=== PATIENT | female | born 1935 | race Caucasian/White ===

== ENCOUNTER 2018-12-10 14:11 | Observation (INO) | payer MEDICARE, BC ==
--- NOTE | 2018-12-10 14:53 | ED ---
Influenza-Like Illness - HPI Summary HPI Summary: An 83 y/o female brought in by [facility] ambulance presents to [facility] with a chief complaint of flu like symptoms since 12/09/18. The patient reports dizziness, productive cough with clear phlegm, body aches, runny nose, sinus congestion, post nasal drip, fever and chills. The patient notes that she did not take her temperature but thinks she has a fever. Temperature of 99.9 noted at triage. She denies N/V/D, CP, SOB or swelling of her legs. At triage the patient rated her pain as a 2/10 in severity. The patient's daughter reports that she recently had an upper respiratory infection, but has stayed away from her mother. - History of Current Complaint Chief Complaint: EDFluSymptoms Time Seen by Provider: 12/10/18 14:38 Hx Obtained From: Patient, EMS Onset/Duration: Sudden Onset, Lasting Hours, Still Present Severity: Mild Associated Signs & Symptoms: Fever, Cough, Nasal Congestion - Allergy/Home Medications Allergies/Adverse Reactions: Allergies Allergy/AdvReac Type Severity Reaction Status Date / Time erythromycin base Allergy Unknown Verified 12/10/18 14:40 Reaction Details omeprazole Allergy Unknown Verified 12/10/18 14:40 Reaction Details Penicillins Allergy Unknown Verified 12/10/18 14:40 Reaction Details Home Medications: Home Medications Apixaban* [Eliquis*] 2.5 mg PO BID 12/10/18 [History Confirmed 12/10/18] PMH/Surg Hx/FS Hx/Imm Hx Endocrine/Hematology History: Denies: Hx Diabetes Cardiovascular History: Reports: Hx Hypercholesterolemia, Hx Hypertension Denies: Hx Congestive Heart Failure GI History: Reports: Hx Gall Bladder Disease - Cholecystectomy previously, Hx Gastroesophageal Reflux Disease - ON MEDS, Other GI Disorders - Appendicitis Sensory History: Reports: Hx Contacts or Glasses - Reading, Hx Hearing Problem - No hearing aids Opthamlomology History: Reports: Hx Contacts or Glasses - Reading - Cancer History Cancer Type, Location and Year: Skin cancer on LLQ of abdomen and nose Hx Chemotherapy: No Hx Radiation Therapy: No - Surgical History Surgery Procedure, Year, and Place: 2010 colon resection [facility]. 1974 HYSTERECTOMY ROS. 1960s APPENDECTOMY. 2010 BILATERAL CATARACTS [facility] [place]. 2013 CHOLECYSTECTOMY. Skin CA removal Hx Anesthesia Reactions: No Infectious Disease History: No Infectious Disease History: Denies: Traveled Outside the [place] in Last 30 Days - Family History Known Family History: Negative: Hypertension, Diabetes - Social History Alcohol Use: 2x/month Alcohol Amount: 3-4 DRINKS/MONTH Substance Use Type: Reports: None Smoking Status (MU): Former Smoker Amount Used/How Often: 1 1/2 PPD 20 YRS Review of Systems Positive: Fever, Chills Positive: Other - Positive: runny nose, sinus congestion, post nasal drip Negative: Chest Pain Negative: Shortness Of Breath Negative: Vomiting, Diarrhea, Nausea Positive: Edema - legs, Other - body aches Neurological: Other - Positive: dizziness All Other Systems Reviewed And Are Negative: Yes Physical Exam - Summary Physical Exam Summary: VITAL SIGNS: Reviewed. GENERAL: Patient is a well-developed and nourished FEMALE who is lying comfortable in the stretcher. Patient is not in any acute respiratory distress. HEAD AND FACE: No signs of trauma. No ecchymosis, hematomas or skull depressions. No sinus tenderness. EYES: PERRLA, EOMI x 2, No injected conjunctiva, no nystagmus. EARS: Hearing grossly intact. Ear canals and tympanic membranes are within normal limits. MOUTH: Oral mucosa dry. NECK: Supple, trachea is midline, no adenopathy, no JVD, no carotid bruit, no c- spine tenderness, neck with full ROM. CHEST: Symmetric, no tenderness at palpation LUNGS: Decreased breath sounds bilaterally. Crackles in both places of the lungs. CVS: Regular rate and rhythm, S1 and S2 present, no murmurs or gallops appreciated. ABDOMEN: Soft, non-tender. No signs of distention. No rebound no guarding, and no masses palpated. Bowel sounds are normal. EXTREMITIES: FROM in all major joints, no edema, no cyanosis or clubbing. NEURO: Alert and oriented x 3. No acute neurological deficits. Speech is normal and follows commands. SKIN: Dry and warm Triage Information Reviewed: Yes Vital Signs On Initial Exam: Initial Vitals Temp Pulse Resp BP Pulse Ox 99.9 F 76 24 150/50 93 12/10/18 14:15 12/10/18 14:15 12/10/18 14:15 12/10/18 14:15 12/10/18 14:15 Vital Signs Reviewed: Yes Diagnostics - Vital Signs Vital Signs Temp Pulse Resp BP Pulse Ox 12/10/18 14:15 99.9 F 76 24 150/50 93 - Laboratory Result Diagrams: 12/10/18 15:13 12/10/18 15:13 Lab Statement: Any lab studies that have been ordered have been reviewed, and results considered in the medical decision making process. - Radiology CXR Radiology Interpretation Completed By: Radiologist Summary of Radiographic Findings: Atelectasis in the right midlung field. No pneumonia is identified. ED physician has reviewed this imaging report. - EKG 15:32 Cardiac Rate: NL - 85 bpm. EKG Rhythm: Sinus Rhythm EKG Comparison: No Significant Change Summary of EKG Findings: Normal sinus rhtyhm at [address] elevations similar to previous EKG done 04/28/15 Flu Symptom Course/Dx - Course Assessment/Plan: Blood work without any significant abnormality except for creatinine 1.5, glucose 124, CRP of 22.56, BNP is 605, urinalysis is negative for UTI. Influenza A and B is negative. Chest x-ray is read by radiology as negative for acute pathology. However in looking in the x-ray and he since that the patient has a left lower lobe pleural effusion and may be playing some pneumonia. Since the patient is having fevers, productive cough with yellowish and greenish sputum I believe that the patient may be developing an early pneumonia. Therefore I give the patient Rocephin and Lasix since the BNP is elevated. I discuss my physical exam, findings and test results with Dr. Johnson from the hospitalist services and he agrees to admit patient to his services. Patient is hemodynamically stable alert and oriented x 3. - Diagnoses Provider Diagnoses: Pneumonia, CHF (congestive heart failure) - Physician Notifications Discussed Care Of Patient With: Hugo Johnson Time Discussed With Above Provider: 18:14 Instructed by Provider To: Admit As Inpatient Discharge - Sign-Out/Discharge Documenting (check all that apply): Patient Departure - admit Patient Received Moderate/Deep Sedation with Procedure: No - Discharge Plan Condition: Fair Disposition: ADMITTED TO [facility] - Billing Disposition and Condition Condition: FAIR Disposition: Admitted to [facility] - Attestation Statements Document Initiated by Scribe: Yes Documenting Scribe: Mc Rodriguez Provider For Whom Scribe is Documenting (Include Credential): Augustin Jimenez MD Scribe Attestation: IMc, scribed for Augustin Jimenez MD on 12/10/18 at 2123. Scribe Documentation Reviewed: Yes Provider Attestation: The documentation as recorded by the scribe, Mc Rodriguez accurately reflects the service I personally performed and the decisions made by me, Augustin Jimenez MD Status of Scribe Document: Viewed
[2018-12-10] MEDS ORDERED: NS 0.9% 1000 ML** 1,000 ML IV.FLUID IV ONE (14:56)
[2018-12-10 15:00] LABS: Influenza A Molecular NEGATIVE (Negative); Influenza B Molecular NEGATIVE (Negative)
[2018-12-10 15:27] LABS: ABS Basophils 0 10^3/ul (0-0.2); ABS Eosinophils 0.1 10^3/ul (0-0.6); ABS Lymphocytes 0.6 10^3/ul (1.0-4.8); ABS Monocytes 0.5 10^3/ul (0-0.8); ABS Neutrophils 5.9 10^3/ul (1.5-7.7); ABS Nucleated RBC 0 10^3/ul; Eosinophil % 0.9 %; Hematocrit 40 % (35-47); Hemoglobin 13.4 g/dl (12.0-16.0); Lymphocyte % 8.6 %; Mean Corpuscular HGB Conc 34 g/dl (31-36); Mean Corpuscular Hemoglobin 30 pg (27-31); Mean Corpuscular Volume 90 fL (80-97); Mean Platelet Volume 8.2 fL (7.4-10.4); Nucleated Red Blood Cells % 0; Platelet Count 194 10^3/ul (150-450); Red Blood Count 4.43 10^6/ul (4.00-5.40); Red Cell Distribution Width 13 % (10.5-15); White Blood Count 7.1 10^3/ul (3.5-10.8)
[2018-12-10 15:50] LABS: Albumin/Globulin Ratio 1.5 (1-3); BUN/Creatinine Ratio 13.2 (8-20); C Reactive Protein 22.56 mg/L (<8.01); Calcium 9.7 mg/dL (8.6-10.3); EGFR African American 39.6 (>60); EGFR Non-African American 32.8 (>60); Globulin 2.6 g/dL (2-4); Potassium 4.2 mmol/L (3.5-5.0); Total Bilirubin 0.7 mg/dL (0.2-1.0); Total Protein 6.6 g/dL (6.4-8.9)
[2018-12-10 15:51] LABS: Troponin I 0.01 ng/mL (<0.04)
[2018-12-10 15:55] LABS: CKMB ng/mL 0.7 ng/mL (0.6-6.3)
[2018-12-10] MEDS ORDERED: cefTRIAXone(*) 1 GM in NS 0.9% 50 ML* 50 ML IVPB ONE (16:13)
[2018-12-10] MEDS ORDERED: Furosemide IV* 10 MG/ML 2 ML VIAL (20 MG) IV ONE (16:13)
[2018-12-10] MEDS ORDERED: Albuterol/Ipratropium NEB.SOL* Albuterol 2.5 MG/Ipratropium 0.5 MG 3 ML INH PRN (17:04)
[2018-12-10 17:22] LABS: Urine Appearance Clear; Urine Bilirubin Negative (Negative); Urine Blood Negative (Negative); Urine Color Straw; Urine Glucose Negative (Negative); Urine Ketones Negative (Negative); Urine Nitrite Negative (Negative); Urine Protein Negative (Negative); Urine Specific Gravity 1.006 (1.010-1.030); Urine Urobilinogen Negative (Negative)
[2018-12-10] MEDS ORDERED: Albuterol/Ipratropium NEB.SOL* Albuterol 2.5 MG/Ipratropium 0.5 MG 3 ML INH SCH ×2 (18:00→19:00)
--- NOTE | 2018-12-10 19:07 | HP ---
HISTORY AND PHYSICAL: DATE OF ADMISSION: 12/10/18 ADMITTING PROVIDER: Hugo Johnson MD PRIMARY CARE PHYSICIAN: Dr. Murphy. OUTPATIENT UM NURSE: Dr. Washington. CHIEF COMPLAINT: Fevers, chills, shortness of breath and background of chronic dyspnea on exertion, headache. HISTORY OF PRESENT ILLNESS: Concepcion Avelar is an 83-year-old female with past medical history of hypertension and hyperlipidemia, although on no meds for neither and on Eliquis 2.5 b.i.d. for unclear reason (she states because half of her kidneys are not working); suspected possible COPD, 30-pack years(quit in 1979). 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 She developed flu-like symptoms over the last 24 hours with headaches, cough, congestion, severe chills, worse shortness of breath than usual and some wheezing. [place] [facility] and was found to have elevated BNP of 605 compared to her normal value back in 2013. Her CRP was 22.5. She was tachypneic, had a temperature of 99.9 and given her comorbidities of possible COPD, undiagnosed CHF and despite the negative flu swabs, she was being admitted to observation status for respiratory distress and SIRS. She was given ceftriaxone and 20mg of IV Lasix in the emergency room. She is a poor historian. She is very short of breath with exertion at baseline, cannot walk up a flight of stairs without stopping. Last echocardiogram was in 2014, which showed an EF of 60% to 65%. She was recently stopped off her atorvastatin. She says she takes an inhaler for "her heart" though her son thinks it is likely for "early COPD" that was suspected by Dr. Murphy. PAST MEDICAL HISTORY: Hypertension, hyperlipidemia, appendectomy, hysterectomy , bowel resection, skin cancer, lap jourdan, ? early COPD. CURRENT MEDICATIONS: She only attests to unknown inhaler as needed and Eliquis 2.5 mg b.i.d. ALLERGIES: To PENICILLIN, OMEPRAZOLE, ERYTHROMYCIN. FAMILY HISTORY: Mother of PE and hypertension at age 89. Father of prostate cancer and hypertension at age 89. SOCIAL HISTORY: The patient has approximately 25 to 30-pack year, quit in 1979. No drug use or alcohol use. Her medical surrogate is Judy Michael, [phone]. She does desire to be a full code. REVIEW OF SYSTEMS: A complete 14-point review of systems negative except as per HPI. PHYSICAL EXAMINATION GENERAL APPEARANCE: No acute distress. VITAL SIGNS: Temperature 99.8; pulse rate 76; respiratory rate 24; satting 92% on room air, but desaturating with talking; blood pressure 150/50. HEENT: Normocephalic, atraumatic. Pupils are equal, round, and reactive to light. Extraocular motions intact. No scleral icterus. NECK: Supple. No cervical lymphadenopathy. LUNGS: No rhonchi or rales, but expiratory wheezing diffusely. CARDIAC: Regular rate and rhythm. No murmurs, rubs, or gallops. ABDOMEN: Soft, nontender, nondistended. EXTREMITIES: Warm and well perfused. Trace pitting edema bilaterally. NEURO: Cranial nerves II through XII intact. Moving all extremities. SKIN: No lesions. No rashes. DIAGNOSTIC STUDIES/LAB DATA: White count 7.1, hemoglobin 13.4, hematocrit 40, platelets 194,000. Sodium 137, potassium 4.2, chloride 103, carbon dioxide 29, BUN 20, creatinine 1.51, glucose 124. AST 17, ALT 12. Troponin 0.01, CRP 22.5 , BNP 605. Influenza A and B negative. Chest x-ray demonstrated atelectasis in the right mid lung filed. No pneumonia is identified. EKG demonstrated normal sinus rhythm, left axis deviation. No ST changes. T- wave in V5. ASSESSMENT AND PLAN: Concepcion Avelar is an 83-year-old female with past medical history of 25 to 30-pack year and suspected early chronic obstructive pulmonary disease, uses p.r.n.(unknown) inhalers, presenting with 24 hours of flu-like symptoms. She is tachypneic here with worsening hypoxia with talking, desatting to the mid 80s while I was in the room though with poor waveform and likely somewhat artifactual. She also has elevated BNP, though no known history of congestive heart failure. Flu was negative. Daughter did have upper respiratory symptoms recently. Given her age of 83 and comorbidities, I think it is prudent to admit her to observation status, get an echocardiogram to evaluate her valves and systolic and diastolic function. Daily weights, strict I's and O's. 20mg of IV Lasix b.i.d. I am going to continue Tamiflu empirically as the flu swab may be false negative and also continue the ceftriaxone. I am going to start azithromycin for potential chronic obstructive pulmonary disease exacerbation. She is status post one dose of ceftriaxone here. She is a full code. She can eat a heart-healthy diet. Medical surrogate is Judy Michael. Continue her Eliquis and try to figure out why she is actually taking that. [id number]/CPS #: [id number] MTDD
[2018-12-10] MEDS: Acetaminophen TAB* 325 MG PO PRN (19:20)
[2018-12-10] MEDS: Oseltamivir CAP* 30 MG CAP PO SCH (21:27)
[2018-12-10] MEDS: Furosemide IV* 10 MG/ML 2 ML VIAL (20 MG) IV SCH (21:28)
[2018-12-10] MEDS: Apixaban* 2.5 MG TAB PO SCH (21:28)
[2018-12-11 02:13] LABS: Magnesium 1.9 mg/dL (1.9-2.7)
[2018-12-11] MEDS: Oseltamivir CAP* 30 MG CAP PO SCH (08:56)
[2018-12-11] MEDS: Acetaminophen TAB* 325 MG PO PRN (08:56)
[2018-12-11] MEDS: Apixaban* 2.5 MG TAB PO SCH ×2 (08:56→20:53)
[2018-12-11 08:58] LABS: ABS Basophils 0.1 10^3/ul (0-0.2); ABS Eosinophils 0.1 10^3/ul (0-0.6); ABS Lymphocytes 1.1 10^3/ul (1.0-4.8); ABS Monocytes 0.7 10^3/ul (0-0.8); ABS Neutrophils 3.4 10^3/ul (1.5-7.7); ABS Nucleated RBC 0 10^3/ul; Eosinophil % 2.7 %; Hematocrit 40 % (35-47); Hemoglobin 13.3 g/dl (12.0-16.0); Lymphocyte % 20.8 %; Mean Corpuscular HGB Conc 34 g/dl (31-36); Mean Corpuscular Hemoglobin 30 pg (27-31); Mean Corpuscular Volume 90 fL (80-97); Mean Platelet Volume 8.7 fL (7.4-10.4); Nucleated Red Blood Cells % 0.1; Platelet Count 199 10^3/ul (150-450); Red Blood Count 4.38 10^6/ul (4.00-5.40); Red Cell Distribution Width 13 % (10.5-15); White Blood Count 5.4 10^3/ul (3.5-10.8)
[2018-12-11 09:17] LABS: BUN/Creatinine Ratio 13.4 (8-20); Calcium 9.8 mg/dL (8.6-10.3); EGFR African American 37.9 (>60); EGFR Non-African American 31.3 (>60); Magnesium 1.8 mg/dL (1.9-2.7); Potassium 3.7 mmol/L (3.5-5.0)
[2018-12-11] MEDS: Furosemide IV* 10 MG/ML 2 ML VIAL (20 MG) IV SCH ×2 (09:33→20:53)
--- NOTE | 2018-12-11 10:58 | ECHO ---
Patient: ANTONY CROSS Rec#: [id number] : 1935 Date: 12/11/2018 Age: 83y Height: 168 cm / 66.1 in Weight: 77 kg / 169.7 lbs Sex: F BSA: 1.87 Room#: 433 Admit Date#: 12/10/2018 Type: Inpatient Referring: Hugo Johnson Reading: Maite Gutierres MD Wireless Technician: Sofia Rolon,DIXIECS,RDMS CC: Roberto Murphy DO Transthoracic Echocardiogram Indication: CHF, SOB BP: 121/46 HR: 44 Rhythm: NSR with PVCs Findings History: PFO, HTN, HLD Technical Comments: The study quality is fair. Left Ventricle: The left ventricular chamber size is normal. Mild concentric left ventricular hypertrophy is observed. Basal interventricular septum shows moderate thickening. Global left ventricular wall motion and contractility are within normal limits. The estimated ejection fraction is 60-65%. There is an E to A reversal in the mitral valve flow pattern suggestive of diastolic dysfunction. Left Atrium: The left atrium is slightly dilated. Right Ventricle: The right ventricular chamber size and systolic function are within normal limits. Right Atrium: The right atrial cavity size is normal. There is evidence of an atrial septal aneurysm. Aortic Valve: The aortic valve is trileaflet. The aortic valve leaflets are mildly thickened. Systolic excursion of the aortic valve is normal. There is aortic annular calcification. There is no evidence of aortic regurgitation. There is no evidence of aortic stenosis. Mitral Valve: There is mitral annular calcification. The mitral valve leaflets are mildly thickened. There is mild to moderate mitral regurgitation. There is no evidence of mitral stenosis. Tricuspid Valve: The tricuspid valve leaflets are normal. There is mild to moderate tricuspid regurgitation. There is evidence of borderline pulmonary hypertension. Pulmonic Valve: The pulmonic valve structure is not well visualized. There is no evidence of pulmonic regurgitation. Pericardium: There is no significant pericardial effusion. Aorta: The aortic root appears normal. The aortic arch is not well visualized. Pulmonary Artery: The main pulmonary artery is not well visualized. Venous: The inferior vena cava appears normal in size. There is a greater than 50% respiratory change in the inferior vena cava dimension. Summary: There are changes noted when compared to the previous study done on [facility] done 04/29/2015, MR and TR with borderline mildincrease now. Now there is borderline PHTN instead of mild-moderate then. Conclusions The left ventricular chamber size is normal. Mild concentric left ventricular hypertrophy is observed. The estimated ejection fraction is 60-65%. There is mild to moderate mitral regurgitation. There is mild to moderate tricuspid regurgitation. Measurements Name Value Normal Range RVIDd (AP) 2D 2.5 cm (0.9 - 2.6) RVDdMajor (2D) 2.6 cm (2.2 - 4.4) RAd ISD 4CH 4.7 cm (3.4 - 4.9) RA (A4C)W 3.5 cm (2.9 - 4.6) IVSd (2D) 1.5 cm (0.6 - 1) LVPWd (2D) 1.1 cm (0.6 - 1) LVIDd (2D) 4.2 cm (3.6 - 5.4) LVIDs (2D) 2.6 cm - LV FS (2D) 37 % (25 - 45) Aortic Annulus 2.1 cm (1.4 - 2.6) Ao root diameter (2D) 2.9 cm (2.1 - 3.5) Ascending Ao 2.9 cm (2.1 - 3.4) LA dimension (AP) 2D 3.3 cm (2.3 - 3.8) LAd ISD 4CH 5.6 cm (2.9 - 5.3) LA ISD 4CH W 3.9 cm (2.5 - 4.5) Name Value Normal Range LA ESV BP (A/L) index 27 ml/m2 - Name Value Normal Range MV E-wave Vmax 0.7 m/sec - MV deceleration time 84 msec - MV A-wave Vmax 1.2 m/sec - MV E:A ratio 0.6 ratio - LV septal e' Vmax 0.06 m/sec - LV lateral e' Vmax 0.08 m/sec - LV E:e' septal ratio 11 ratio - LV E:e' lateral ratio 8 ratio - Name Value Normal Range AV Vmax 1.7 m/sec - AV VTI 33 cm - AV peak gradient 12 mmHg - AV mean gradient 6 mmHg - LVOT Vmax 1.3 m/sec - LVOT VTI 23 cm - LVOT peak gradient 7 mmHg - LVOT mean gradient 4 mmHg - MAXI Vmax 0.5 m/sec - Name Value Normal Range MV Vmax 1.4 m/sec - MV VTI 33 cm - MV peak gradient 8 mmHg - MV mean gradient 2 mmHg - MV PHT 83 msec - MVA (PHT) 2.7 cm2 - Name Value Normal Range TR Vmax 2.8 m/sec - TR peak gradient 31 mmHg - RAP 3 mmHg - RVSP 34 mmHg - IVC diameter 1.4 cm - Name Value Normal Range PV Vmax 0.6 m/sec - PV peak gradient 1.4 mmHg -
[2018-12-11] MEDS ORDERED: Magnesium Sulfate 2 GM IV* 2 GM/50 ML BAG IVPB ONE (12:40)
[2018-12-11] MEDS ORDERED: cefTRIAXone(*) 1 GM in NS 0.9% 50 ML* 50 ML IVPB SCH (16:00)
--- NOTE | 2018-12-11 16:45 | PN ---
Subjective Date of Service: 12/11/18 Interval History: Resting in bed with daughter at bedside. O2 saturation monitor while talking with patient and she remained above 95% on room air. Also did not show signs of dyspnea. Reports she feels improved since last evening. Denies chest pain/pressure, palpitations, shortness of breath, nausea, vomiting , diarrhea, fever/chills, dizziness. Reports occasional cough. Per nurse patient has a "bad" cough occasionally. Objective Active Medications: Acetaminophen (Tylenol Tab*) 650 mg PO Q6H PRN PRN Reason: FEVER/HEADACHE Last Admin: 12/11/18 08:56 Dose: 650 mg Albuterol/Ipratropium (Duoneb (Albuterol 2.5 Mg/Ipratropium 0.5 Mg)) 1 neb INH Q2H PRN PRN Reason: SOB/WHEEZING Apixaban (Eliquis*) 2.5 mg PO BID [facility] Last Admin: 12/11/18 08:56 Dose: 2.5 mg Furosemide (Lasix Iv*) 20 mg IV BID [facility] Last Admin: 12/11/18 09:33 Dose: 20 mg Ceftriaxone Sodium 1 gm/ (Sodium Chloride) 50 mls @ 200 mls/hr IVPB Q24H [facility] Last Admin: 12/11/18 16:35 Dose: 200 mls/hr Vital Signs - 8 hr 12/11/18 11:41 Temperature 97.5 F Pulse Rate 41 Respiratory 20 Rate Blood Pressure 127/45 (mmHg) O2 Sat by Pulse 95 Oximetry Oxygen Devices in Use Now: None Appearance: Comfortable, NAD Eyes: No Scleral Icterus Ears/Nose/Mouth/Throat: Clear Oropharnyx, Mucous Membranes Moist Neck: NL Appearance and Movements; NL JVP Respiratory: Symmetrical Chest Expansion and Respiratory Effort, Clear to Auscultation, - - Mildly decreased airflow Cardiovascular: NL Sounds; No Murmurs; No JVD, RRR, No Edema Abdominal: NL Sounds; No Tenderness; No Distention Lymphatic: No Cervical Adenopathy Extremities: No Edema Skin: No Rash or Ulcers Neurological: Alert and Oriented x 3 Nutrition: Taking PO's Result Diagrams: 12/11/18 07:55 12/11/18 07:55 Additional Lab and Data: Laboratory Results - last 24 hr 12/10/18 12/10/18 12/11/18 14:52 15:13 07:55 WBC RBC Hgb Hct MCV MCH MCHC RDW Plt Count MPV Neut % (Auto) Lymph % (Auto) Towner % (Auto) Eos % (Auto) Baso % (Auto) Absolute Neuts (auto) Absolute Lymphs (auto) Absolute Monos (auto) Absolute Eos (auto) Absolute Basos (auto) Absolute Nucleated RBC Nucleated RBC % Sodium 137 138 Potassium 4.2 3.7 Chloride 103 101 Carbon Dioxide 29 27 Anion Gap 5 10 BUN 20 21 Creatinine 1.51 H 1.57 H Est GFR ( Amer) 39.6 37.9 Est GFR (Non-Af Amer) 32.8 31.3 BUN/Creatinine Ratio 13.2 13.4 Glucose 124 H 101 H Calcium 9.7 9.8 Magnesium 1.9 1.8 L Total Bilirubin 0.70 AST 17 ALT 12 Alkaline Phosphatase 57 Total Creatine Kinase 48 CK-MB (CK-2) 0.7 Troponin I 0.01 C-Reactive Protein 22.56 H Total Protein 6.6 Albumin 4.0 Globulin 2.6 Albumin/Globulin Ratio 1.5 Urine Color Straw Urine Appearance Clear Urine pH 7.0 Ur Specific [place] 1.006 L Urine Protein Negative Urine Ketones Negative Urine Blood Negative Urine Nitrate Negative Urine Bilirubin Negative Urine Urobilinogen Negative Ur Leukocyte Esterase Negative Urine Glucose Negative 12/11/18 07:55 WBC 5.4 RBC 4.38 Hgb 13.3 Hct 40 MCV 90 MCH 30 MCHC 34 RDW 13 Plt Count 199 MPV 8.7 Neut % (Auto) 62.2 Lymph % (Auto) 20.8 Towner % (Auto) 13.3 Eos % (Auto) 2.7 Baso % (Auto) 1.0 Absolute Neuts (auto) 3.4 Absolute Lymphs (auto) 1.1 Absolute Monos (auto) 0.7 Absolute Eos (auto) 0.1 Absolute Basos (auto) 0.1 Absolute Nucleated RBC 0 Nucleated RBC % 0.1 Sodium Potassium Chloride Carbon Dioxide Anion Gap BUN Creatinine Est GFR ( Amer) Est GFR (Non-Af Amer) BUN/Creatinine Ratio Glucose Calcium Magnesium Total Bilirubin AST ALT Alkaline Phosphatase Total Creatine Kinase CK-MB (CK-2) Troponin I C-Reactive Protein Total Protein Albumin Globulin Albumin/Globulin Ratio Urine Color Urine Appearance Urine pH Ur Specific [place] Urine Protein Urine Ketones Urine Blood Urine Nitrate Urine Bilirubin Urine Urobilinogen Ur Leukocyte Esterase Urine Glucose Microbiology and Other Data: Microbiology 12/10/18 15:28 Aerobic Blood Culture - Preliminary Blood Venous No Growth Day 1 Anaerobic Blood Culture - Preliminary No Growth Day 1 12/10/18 15:13 Aerobic Blood Culture - Preliminary Blood Venous No Growth Day 1 Anaerobic Blood Culture - Preliminary No Growth Day 1 12/10/18 14:39 Influenza Types A,B Antigen - Final Nasal Specimen received for Influenza A/B Molecular testing Assess/Plan/Problems-Billing Assessment: 83 yr old with pmh of htn, hld, smoking; who presented to ED with fever, chills , sob and was found to be dyspnic and had elevated bnp - Patient Problems (1) Diastolic dysfunction Comment: - Echo revealed mitral valve flow pattern that is suggestive of diastolic dysfunction - In addition patient has mild to mod mitral and tricuspid regurg - BNP elevated on admission. - Has received Lasix 20 mg IV BID while inpatient. LS clear today and patient not dyspnic therefore will stop Lasix after tonights dose. 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 Tomorrow? Attending: Sudhir Seo
[2018-12-12 06:00] LABS: BUN/Creatinine Ratio 17.2 (8-20); Calcium 9.9 mg/dL (8.6-10.3); EGFR African American 36.3 (>60); Magnesium 2.3 mg/dL (1.9-2.7)
[2018-12-12 08:43] VITALS: BP 134/47
[2018-12-12] MEDS: Apixaban* 2.5 MG TAB PO SCH (09:28)
--- NOTE | 2018-12-12 22:52 | DS ---
CC: Dr. Murphy; Dr. Washington * DISCHARGE SUMMARY: DATE OF ADMISSION: 12/10/18 DATE OF DISCHARGE: 12/12/18 PRIMARY CARE PROVIDER: Dr. Murphy. OUTPATIENT INTERNAL MEDICINE NURSE PRACTITIONER: Dr. Washington. ATTENDING PROVIDER: Dr. Seo * (DICTATED BY BRITTANY SANCHEZ NP) PRIMARY DIAGNOSES: 1. Pneumonia. 2. Diastolic dysfunction. SECONDARY DIAGNOSES: 1. Renal infarct. 2. Chronic kidney disease. CONSULTATIONS WHILE IN THE HOSPITAL: No consultations. STUDIES WHILE IN THE HOSPITAL: 1. Chest x-ray: Impression: Atelectasis in right mid lung field. No pneumonia was identified. 2. Transthoracic echocardiogram: Impression: Left ventricular chamber size is normal. Mild concentric left ventricular hypertrophy is observed. Estimated ejection fraction is 60% to 65%. There is [id number]-[id number] mitral regurgitation. There is qoqn-sj-[id number] tricuspid regurgitation. It should be noted that this echo was compared to results of a transesophageal echocardiogram in 2015 and results are similar except mitral and tricuspid regurgitation was documented as mild at that time and it is now mild-to- moderate. DISCHARGE HOME MEDICATIONS: 1. Cefpodoxime 200 mg p.o. q.12 hours x14 days. 2. Tessalon 100 mg p.o. t.i.d. p.r.n. 3. Albuterol inhaler 2 puffs inhalation q.4 hours p.r.n. Continued home medications: Eliquis 2.5 mg p.o. b.i.d. Changed home medications: No home medications were changed. Discontinued home medications: No home medications were discontinued. HISTORY OF PRESENT ILLNESS/HOSPITAL COURSE: Mrs. Avelar is an 83-year-old female who presented to the emergency room on 12/10/18 with complaints of flu like symptoms for over the last 24 hours. Symptoms included headaches, cough, congestion, severe chills, worsening shortness of breath than usual, and some wheezing. While in the emergency department, she was found to have elevated BNP of 605. Her CRP was 225. She was tachypneic and recorded temp of 100.2 and later 101.3. While in the emergency room, the patient received ceftriaxone and 20 mg of IV Lasix. Due to her symptomatology, vital signs, and her comorbidities of possible COPD and undiagnosed CHF, hospitalists were consulted for admission. In addition, the patient did report to the admitting provider that she is very short of breath with exertion at baseline and cannot walk up a flight of stairs without stopping. While assessing the patient, admitting provider also documented that the patient was desatting into the mid 80s while talking. During the hospitalization, the patient continued to receive ceftriaxone. In addition, she received IV Lasix 20 mg b.i.d. Tamiflu was initially provided, but was stopped as the flu swab was negative. The patient has improved greatly as she is no longer short of breath with exertion. She is satting within normal limits on room air. As evidenced, the patient ambulated on the unit with pulse oximetry on room air and average saturation was 95%. Per nurse, she also did not express any shortness of breath. We suspect the patient's presentation and symptomatology was multifactorial due to possible COPD, undiagnosed heart failure, and pneumonia. Mrs. Avelar is stable for discharge to home today. Her vital signs are as follows: Temp 98.5, HR 79, RR 20, O2 saturation 93% room air, blood pressure 134/47. REVIEW OF SYSTEMS: The patient reports occasional cough, which has improved. The patient denies fever, chills, shortness of breath, chest pain, edema, palpitations, or dizziness. Twelve point review of system was completed and all of these were negative. PHYSICAL EXAMINATION: General: Mrs. Avelar is a well-developed, well- nourished woman sitting in bed, in no acute distress. Appears stated age. HEENT: PERRLA. EOMs intact. Oral mucosa is moist without lesions. Pharynx is clear. Neck: Full range of motion. No lymphadenopathy. Respiratory: Symmetrical chest expansion. No accessory muscle use. Lung sounds are clear to auscultation. No rhonchi, wheezing, or rubs. CV: Regular rate and rhythm. S1 and S2 present. No murmurs, rubs, or gallops. Extremities: Skin is warm and smooth bilaterally. No edema. Musculoskeletal: Full range of motion. No pain. Abdomen: Soft, nontender to palpation. Bowel sounds x4. Neuro: Awake , alert, and oriented x4. Cranial nerves II through XII intact. Moves all extremities well. Motor strength is 5/5 in upper and lower extremities bilaterally. Skin: Grossly intact without lesions. LABORATORY DATA: WBC 4.5, hemoglobin 13.3, hematocrit 40, platelets 199. Sodium 137, potassium 4.0, chloride 100, carbon dioxide 27, BUN 28, creatinine 1.63, glucose 118, magnesium 2.3. DISCHARGE PLAN/FOLLOWUP: 1. Pneumonia: As mentioned in the HPI, the patient has greatly improved as she has no longer experienced dyspnea and she is no longer needing supplemental oxygen. In addition, her lung assessment is within normal limits. The patient received ceftriaxone while in the hospital. Azithromycin was initiated, but was discontinued and I suspect this is due to her allergy to erythromycin. The patient has been discharged on cefpodoxime as mentioned above 200 mg p.o. b.i.d. for 14 days. 2. Diastolic dysfunction: Her echo revealed mitral valve flow pattern that suggested diastolic dysfunction. She also has moderate mitral and tricuspid regurgitation. She did have an elevated BNP on admission. She received Lasix and responded well. I did not discharge the patient on Lasix as I suspect this dysfunction/failure was exacerbated by the patient's COPD/pneumonia. I would highly recommend the patient to have a repeat BNP at her follow up with Dr. Murphy next week and the decision will be made whether or not she should be on chronic diuretics. 3. 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 Therefore, the patient is on Eliquis. 4. Chronic kidney disease: This is secondary to her renal infarct. Her creatinine is currently at near baseline at 1.63. I encouraged the patient to increase her water intake. I would also recommend that Dr. Murphy repeat her creatinine on the follow up. 5. Follow up: As mentioned above, I believe, the patient will benefit from a repeat BMP including a creatinine. In addition, the patient would benefit from a repeat BNP and further evaluation of heart failure. I will suggest the patient also follow up with her structural analyst. 6. Education. The patient and daughter were educated on new or worsening symptoms and when to follow up or return to the emergency department. The patient will be staying with her daughter until her follow up with her primary care provider which has been scheduled for her. TIME SPENT: Approximately 35 minutes was spent on this discharge, greater than half of that time was spent [id number] with the patient and caregiver discussing my plan and completing my physical assessment. This case has been reviewed with my attending, Dr. Seo, who is in agreement with the plan of care. BRITTANY SANCHEZ, ASIC ENGINEER [id number]/[facility] #: [id number] [facility]
== END 2018-12-12 11:55 | disposition home or self-care (01) ==
LOC: ED 14:11 → MEDTELE 16:57
PROVIDERS: ADMIT Internal Medicine; ATTEND Internal Medicine
DX: J18.9 Pneumonia, unspecified organism (principal); I50.30 Unspecified diastolic (congestive) heart failure; N28.0 Ischemia and infarction of kidney; N18.9 Chronic kidney disease, unspecified; R06.02 Shortness of breath; Z88.0 Allergy status to penicillin; R50.9 Fever, unspecified; Z87.891 Personal history of nicotine dependence
CPT/HCPCS: 36415; 71046; 80048; 80053; 81003; 82550; 82553; 83605; 83735; 83880; 84484; 85025; 86140; 87040; 93005; 93306; 96361; 96365; 96366; 96375; 99284; A9270-GY; G0378; J0696; J1940; J3475

== ENCOUNTER 2021-08-31 16:37 | Inpatient (IN) ==
[2021-08-31] MEDS ORDERED: NS 0.9% 1000 ml BAG 1,000 ML IV SCH ×3 (18:30→20:15)
[2021-08-31 18:34] LABS: ABS Basophils 0.1 10^3/ul (0-0.2); ABS Eosinophils 0.1 10^3/ul (0-0.6); ABS Lymphocytes 1.2 10^3/ul (1.0-4.8); ABS Monocytes 0.7 10^3/ul (0-0.8); ABS Neutrophils 7.5 10^3/ul (1.5-7.7); Eosinophil % 1.3 %; Hematocrit 37 % (35-47); Hemoglobin 12.9 g/dL (12.0-16.0); Lymphocyte % 12.2 %; Mean Corpuscular HGB Conc 34 g/dL (31-36); Mean Corpuscular Hemoglobin 31 pg (27-31); Mean Corpuscular Volume 90 fL (80-97); Mean Platelet Volume 7.7 fL (7.4-10.4); Platelet Count 254 10^3/uL (150-450); Red Blood Count 4.18 10^6 /uL (3.70-4.87); Red Cell Distribution Width 14 % (10-15); White Blood Count 9.5 10^3/uL (3.5-10.8)
[2021-08-31 18:51] LABS: Calcium 10.7 mg/dL (8.6-10.3); Potassium 4.2 mmol/L (3.5-5.0)
[2021-08-31] MEDS ORDERED: levETIRAcetam IV 1,500 MG in NS 0.9% 100 ml BAG 100 ML IVPB ONE (19:58)
[2021-08-31 20:29] LABS: Activated Partial Thrombo Time 31.1 seconds (26.0-38.0); INR 1.19 (0.86-1.15)
[2021-08-31] MEDS ORDERED: Prothrombin Complex Conc. DOSE = Units Factor IX (nine) IV SLOW PU ONE (20:30)
[2021-08-31] MEDS ORDERED: Ondansetron 4 mg VIAL 2 MG/ML 2 ml VIAL IV PRN (21:30)
[2021-08-31] MEDS ORDERED: Magnesium Hydroxide LIQ 30 ML UDC PO PRN (22:46)
[2021-09-01 05:21] LABS: ABS Eosinophils 0.2 10^3/ul (0-0.6); ABS Lymphocytes 1.5 10^3/ul (1.0-4.8); ABS Monocytes 0.4 10^3/ul (0-0.8); ABS Neutrophils 3.4 10^3/ul (1.5-7.7); Eosinophil % 3.1 %; Hematocrit 36 % (35-47); Lymphocyte % 27.6 %; Mean Corpuscular HGB Conc 34 g/dL (31-36); Mean Corpuscular Hemoglobin 31 pg (27-31); Mean Corpuscular Volume 91 fL (80-97); Mean Platelet Volume 7.8 fL (7.4-10.4); Nucleated Red Blood Cells % 0.1; Platelet Count 216 10^3/uL (150-450); Red Blood Count 3.95 10^6 /uL (3.70-4.87); Red Cell Distribution Width 13 % (10-15); White Blood Count 5.5 10^3/uL (3.5-10.8)
[2021-09-01 05:37] LABS: Calcium 9.6 mg/dL (8.6-10.3); Potassium 3.9 mmol/L (3.5-5.0)
[2021-09-01 05:53] LABS: INR 1.12 (0.86-1.15)
[2021-09-01 06:06] LABS: Rapid COVID-19 Molecular Undetected (Undetected)
[2021-09-01] MEDS ORDERED: Potassium Chlor 20 meq TAB.ER PO ONE (13:55)
[2021-09-02 06:18] LABS: Hematocrit 37 % (35-47); Hemoglobin 12.5 g/dL (12.0-16.0); Mean Corpuscular HGB Conc 34 g/dL (31-36); Mean Corpuscular Hemoglobin 31 pg (27-31); Mean Corpuscular Volume 90 fL (80-97); Mean Platelet Volume 7.5 fL (7.4-10.4); Platelet Count 221 10^3/uL (150-450); Red Blood Count 4.09 10^6 /uL (3.70-4.87); Red Cell Distribution Width 14 % (10-15); White Blood Count 4.8 10^3/uL (3.5-10.8)
[2021-09-02 06:39] LABS: Calcium 9.6 mg/dL (8.6-10.3); Phosphorus 2.5 mg/dL (2.5-5.0); Potassium 4.6 mmol/L (3.5-5.0)
[2021-09-02 08:45] VITALS: BP 125/65
== END 2021-09-02 12:34 | disposition home or self-care (01) | DRG 87 ==
LOC: ED 16:37 → EDHOLD 22:45 → SUATTDRO 22:45 → ICU 09-01 07:13
PROVIDERS: ADMIT Hospitalist; ATTEND Internal Medicine

== ENCOUNTER 2022-01-07 11:17 | Inpatient (IN) ==
[2022-01-07 12:07] LABS: ABS Eosinophils 0.1 10^3/ul (0-0.6); ABS Lymphocytes 1.2 10^3/ul (1.0-4.8); ABS Monocytes 0.5 10^3/ul (0-0.8); Eosinophil % 1.1 %; Hematocrit 38 % (35-47); Hemoglobin 12.9 g/dL (12.0-16.0); Mean Corpuscular HGB Conc 34 g/dL (31-36); Mean Corpuscular Hemoglobin 31 pg (27-31); Mean Corpuscular Volume 90 fL (80-97); Mean Platelet Volume 7.5 fL (7.4-10.4); Platelet Count 258 10^3/uL (150-450); Red Blood Count 4.22 10^6 /uL (3.70-4.87); Red Cell Distribution Width 14 % (10-15); White Blood Count 8.8 10^3/uL (3.5-10.8)
[2022-01-07] MEDS ORDERED: Ondansetron 4 mg VIAL 2 MG/ML 2 ml VIAL IV ONE ×2 (12:27→13:40)
[2022-01-07] MEDS ORDERED: NS 0.9% 1000 ml BAG 1,000 ML IV ONE (12:27)
[2022-01-07 12:34] LABS: Troponin I 0.01 ng/mL (<0.03)
[2022-01-07 13:06] LABS: Magnesium 2.2 mg/dL (1.9-2.7)
[2022-01-07 13:19] LABS: Albumin 4.2 g/dL (3.2-5.2); Albumin/Globulin Ratio 1.8 (1-3); Calcium 10.7 mg/dL (8.6-10.3); Globulin 2.4 g/dL (2-4); Potassium 4.7 mmol/L (3.5-5.0); Total Bilirubin 0.5 mg/dL (0.2-1.0); Total Protein 6.6 g/dL (6.4-8.9); eGFR CKD-EPI 32.3 (>60)
[2022-01-07] MEDS ORDERED: Iodixanol (CONTRAST) 320 MG/ML 100 ML SDV IV ONE (14:00)
[2022-01-07 14:53] LABS: Urine Appearance Clear; Urine Bilirubin Negative (Negative); Urine Blood 1+ (Negative); Urine Color Yellow; Urine Glucose Negative (Negative); Urine Ketones Trace (Negative); Urine Nitrite Negative (Negative); Urine Protein Negative (Negative); Urine Specific Gravity 1.021 (1.002-1.030); Urine Urobilinogen Negative (Negative)
[2022-01-07 14:56] LABS: Urine Bacteria Absent (Absent); Urine Red Blood Cell 2+(6-10/hpf) (Absent); Urine Squamous Epithelial Cell Present (Absent); Urine White Blood Cell 1+(6-10/hpf) (Absent)
[2022-01-07] MEDS ORDERED: PEG 3000 GI LAVAGE 1 GALLON PO ONE ×2 (17:54→21:47)
[2022-01-07] MEDS ORDERED: Heparin 5000 UNITS/ML 1 mL VIAL IV SCH (18:00)
[2022-01-07] MEDS ORDERED: Albuterol HFA INHALER 8 gm MDI INH PRN (19:00)
[2022-01-07] MEDS ORDERED: Lactated Ringers 500 ml BAG 500 ML IV SCH (19:00)
[2022-01-07] MEDS: Ondansetron 4 mg VIAL 2 MG/ML 2 ml VIAL IV PRN (20:59)
[2022-01-08 04:54] LABS: Hematocrit 36 % (35-47); Mean Corpuscular HGB Conc 34 g/dL (31-36); Mean Corpuscular Hemoglobin 31 pg (27-31); Mean Corpuscular Volume 91 fL (80-97); Mean Platelet Volume 7.7 fL (7.4-10.4); Platelet Count 226 10^3/uL (150-450); Red Blood Count 3.93 10^6 /uL (3.70-4.87); Red Cell Distribution Width 14 % (10-15)
[2022-01-08 05:06] LABS: Calcium 9.4 mg/dL (8.6-10.3); Potassium 4.4 mmol/L (3.5-5.0)
[2022-01-08 05:12] LABS: eGFR CKD-EPI 35.9 (>60)
[2022-01-08] MEDS ORDERED: Enoxaparin 80 MG/0.8 ML SYR SUBCUT SCH (08:00)
[2022-01-08] MEDS ORDERED: Heparin DRIP 25,000 UNITS BAG 25,000 UNITS/500 ML BAG IV SCH ×3 (09:00→21:40)
[2022-01-08] MEDS ORDERED: PEG 3000 GI LAVAGE 1 GALLON PO ONE (13:12)
[2022-01-08] MEDS ORDERED: Heparin 5000 UNITS/ML 1 mL VIAL IV SCH (21:00)
[2022-01-09 05:58] LABS: ABS Eosinophils 0.2 10^3/ul (0-0.6); ABS Lymphocytes 1.4 10^3/ul (1.0-4.8); ABS Monocytes 0.5 10^3/ul (0-0.8); ABS Neutrophils 3.1 10^3/ul (1.5-7.7); Eosinophil % 4.7 %; Hematocrit 33 % (35-47); Lymphocyte % 27.2 %; Mean Corpuscular HGB Conc 34 g/dL (31-36); Mean Corpuscular Hemoglobin 30 pg (27-31); Mean Corpuscular Volume 91 fL (80-97); Mean Platelet Volume 7.8 fL (7.4-10.4); Platelet Count 209 10^3/uL (150-450); Red Blood Count 3.61 10^6 /uL (3.70-4.87); Red Cell Distribution Width 14 % (10-15); White Blood Count 5.3 10^3/uL (3.5-10.8)
[2022-01-09 06:16] LABS: Calcium 9.2 mg/dL (8.6-10.3); Potassium 3.9 mmol/L (3.5-5.0); eGFR CKD-EPI 38.5 (>60)
[2022-01-09] MEDS ORDERED: Midazolam 10 mg/10 ml VIAL 1 mg/ml 10 ml VIAL (10 mg) ONE ×2 (10:04→15:28)
[2022-01-09] MEDS ORDERED: fentaNYL 100 mcg/2 ml 50 MCG/ML VIAL ONE ×2 (10:04→15:28)
[2022-01-09] MEDS ORDERED: PEG 3000 GI LAVAGE 1 GALLON PO ONE (11:07)
[2022-01-09] MEDS: Enoxaparin 80 MG/0.8 ML SYR SUBCUT SCH (17:06)
[2022-01-10 05:10] LABS: Hematocrit 34 % (35-47); Hemoglobin 11.2 g/dL (12.0-16.0); Mean Corpuscular HGB Conc 34 g/dL (31-36); Mean Corpuscular Hemoglobin 31 pg (27-31); Mean Corpuscular Volume 92 fL (80-97); Mean Platelet Volume 7.9 fL (7.4-10.4); Platelet Count 211 10^3/uL (150-450); Red Blood Count 3.67 10^6 /uL (3.70-4.87); Red Cell Distribution Width 14 % (10-15); White Blood Count 4.6 10^3/uL (3.5-10.8)
[2022-01-10 05:25] LABS: Calcium 9.2 mg/dL (8.6-10.3); Magnesium 1.7 mg/dL (1.9-2.7); Potassium 4.1 mmol/L (3.5-5.0); eGFR CKD-EPI 38.8 (>60)
[2022-01-10] MEDS ORDERED: Magnesium Sulfate IV 3 GM in NS 0.9% 100 ml BAG 100 ML IVPB ONE (06:44)
[2022-01-10] MEDS ORDERED: Magnesium Sulfate 1 GM IV 1 GM/100 ML BAG IV ONE (07:00)
[2022-01-10] MEDS ORDERED: Magnesium Sulfate 2 GM IV (Premix) IVPB ONE (07:00)
[2022-01-10] MEDS: Enoxaparin 80 MG/0.8 ML SYR SUBCUT SCH (17:44)
[2022-01-11 05:24] LABS: Hematocrit 33 % (35-47); Hemoglobin 11.2 g/dL (12.0-16.0); Mean Corpuscular HGB Conc 34 g/dL (31-36); Mean Corpuscular Hemoglobin 31 pg (27-31); Mean Corpuscular Volume 92 fL (80-97); Mean Platelet Volume 7.9 fL (7.4-10.4); Platelet Count 224 10^3/uL (150-450); Red Blood Count 3.64 10^6 /uL (3.70-4.87); Red Cell Distribution Width 14 % (10-15); White Blood Count 4.7 10^3/uL (3.5-10.8)
[2022-01-11 05:43] LABS: Calcium 9.3 mg/dL (8.6-10.3); Magnesium 2.1 mg/dL (1.9-2.7); Potassium 4.2 mmol/L (3.5-5.0); eGFR CKD-EPI 38.5 (>60)
[2022-01-11] MEDS ORDERED: fentaNYL 250 mcg/5 ml 50 MCG/ML 5 ml VIAL (250 MCG) ONE (07:58)
[2022-01-11] MEDS ORDERED: Lidocaine 2% PF 5 ML VIAL ONE (07:58)
[2022-01-11] MEDS ORDERED: Rocuronium 50 mg VIAL 10 mg/ml 5 ml VIAL (50 mg) ONE ×2 (07:58→12:12)
[2022-01-11] MEDS ORDERED: Ondansetron 4 mg VIAL 2 MG/ML 2 ml VIAL ONE (07:58)
[2022-01-11] MEDS ORDERED: Dexamethasone IV 4 MG/ML VIAL 1 ml VIAL ONE (07:58)
[2022-01-11] MEDS ORDERED: Propofol 10 MG/ML 20 ML BTL ONE (07:58)
[2022-01-11] MEDS ORDERED: Ertapenem 1 GM in NS 0.9% 50 ML IVPB ONE (09:00)
[2022-01-11] MEDS ORDERED: Phenylephrine 40 mcg/mL 10mL (400mcg) SYRINGE ONE (09:51)
[2022-01-11] MEDS ORDERED: EPHEDrine (Pressors) 50 MG/ML VIAL ONE (09:56)
[2022-01-11] MEDS ORDERED: Phenylephrine IV 10 MG/ML 1 ml VIAL ONE (10:02)
[2022-01-11] MEDS ORDERED: Naloxone 0.4 mg VIAL 0.4 mg/ml 1 ml VIAL IV PRN (10:12)
[2022-01-11] MEDS ORDERED: fentaNYL 100 mcg/2 ml 50 MCG/ML VIAL IV PRN (10:12)
[2022-01-11] MEDS ORDERED: ROPIVACAINE 5 MG/ML 30 ML BTL (0.5%) ONE (10:55)
[2022-01-11] MEDS ORDERED: Ropivacaine 0.2% 2 MG/ML VIAL ONE (10:57)
[2022-01-11] MEDS ORDERED: Albumin Human 5% 12.5 GM/250 ML BTL IV ONE (11:21)
[2022-01-11] MEDS ORDERED: Acetaminophen IV 1 GM/100ML 100 ML IV ONE (12:53)
[2022-01-11] MEDS ORDERED: Naloxone 0.4 mg VIAL 0.4 mg/ml 1 ml VIAL IV PUSH PRN (13:26)
[2022-01-11] MEDS ORDERED: Morphine 4 MG/ML VIAL (1 ml) ONE (13:57)
[2022-01-11] MEDS: Morphine 4 MG/ML VIAL (1 ml) IV PRN ×4 (13:59→14:25)
[2022-01-11] MEDS ORDERED: HYDROmorphone PCA 20 MG/20 ML PCA.SYRING PCA SCH (14:00)
[2022-01-11] MEDS ORDERED: fentaNYL 100 mcg/2 ml 50 MCG/ML VIAL ONE (14:19)
[2022-01-11] MEDS: Ondansetron 4 mg VIAL 2 MG/ML 2 ml VIAL IV PRN (19:51)
[2022-01-11] MEDS ORDERED: NS 0.9% 1000 ml BAG 1,000 ML IV SCH (20:30)
[2022-01-12 06:02] LABS: ABS Lymphocytes 0.5 10^3/ul (1.0-4.8); ABS Monocytes 0.8 10^3/ul (0-0.8); ABS Neutrophils 12.7 10^3/ul (1.5-7.7); Hematocrit 32 % (35-47); Hemoglobin 10.6 g/dL (12.0-16.0); Lymphocyte % 3.8 %; Mean Corpuscular HGB Conc 33 g/dL (31-36); Mean Corpuscular Hemoglobin 30 pg (27-31); Mean Corpuscular Volume 92 fL (80-97); Mean Platelet Volume 7.8 fL (7.4-10.4); Platelet Count 236 10^3/uL (150-450); Red Blood Count 3.51 10^6 /uL (3.70-4.87); Red Cell Distribution Width 14 % (10-15); White Blood Count 14.1 10^3/uL (3.5-10.8)
[2022-01-12 06:17] LABS: Calcium 8.5 mg/dL (8.6-10.3); Magnesium 1.7 mg/dL (1.9-2.7); Potassium 4.7 mmol/L (3.5-5.0); eGFR CKD-EPI 34.1 (>60)
[2022-01-12] MEDS ORDERED: Magnesium Sulfate IV 3 GM in NS 0.9% 100 ml BAG 100 ML IVPB ONE (06:54)
[2022-01-12] MEDS ORDERED: Magnesium Sulfate 2 GM IV (Premix) IVPB ONE (07:30)
[2022-01-12] MEDS ORDERED: Magnesium Sulfate 1 GM IV 1 GM/100 ML BAG IV ONE (09:00)
[2022-01-12] MEDS ORDERED: Lactated Ringers 1000 ml BAG 1,000 ML IV ONE (09:38)
[2022-01-12] MEDS ORDERED: NS 0.9% 1000 ml BAG 1,000 ML IV ONE (19:34)
[2022-01-12] MEDS: Ondansetron 4 mg VIAL 2 MG/ML 2 ml VIAL IV PRN (19:48)
[2022-01-12] MEDS ORDERED: Enoxaparin 80 MG/0.8 ML SYR SUBCUT SCH (21:00)
[2022-01-13] MEDS ORDERED: NS 0.9% 1000 ml BAG 1,000 ML IV SCH (00:15)
[2022-01-13 05:49] LABS: ABS Lymphocytes 0.8 10^3/ul (1.0-4.8); ABS Monocytes 0.7 10^3/ul (0-0.8); ABS Neutrophils 11.2 10^3/ul (1.5-7.7); Eosinophil % 0.4 %; Hematocrit 30 % (35-47); Hemoglobin 9.7 g/dL (12.0-16.0); Lymphocyte % 6.6 %; Mean Corpuscular HGB Conc 33 g/dL (31-36); Mean Corpuscular Hemoglobin 30 pg (27-31); Mean Corpuscular Volume 92 fL (80-97); Mean Platelet Volume 7.8 fL (7.4-10.4); Platelet Count 228 10^3/uL (150-450); Red Blood Count 3.22 10^6 /uL (3.70-4.87); Red Cell Distribution Width 14 % (10-15); White Blood Count 12.8 10^3/uL (3.5-10.8)
[2022-01-13 05:59] LABS: INR 1.24 (0.86-1.15)
[2022-01-13 06:37] LABS: Magnesium 2.3 mg/dL (1.9-2.7); Phosphorus 3.4 mg/dL (2.5-5.0); Potassium 4.1 mmol/L (3.5-5.0); eGFR CKD-EPI 32.3 (>60)
[2022-01-13] MEDS ORDERED: Lactated Ringers 1000 ml BAG 1,000 ML IV SCH ×2 (11:00→14:00)
[2022-01-13] MEDS ORDERED: HYDROmorphone 0.5 MG/0.5 ML SYRINGE IV SLOW PU PRN (12:00)
[2022-01-13] MEDS: Ondansetron 4 mg VIAL 2 MG/ML 2 ml VIAL IV PRN (12:04)
[2022-01-13] MEDS ORDERED: guaiFENesin 100 mg/5 ml LIQ unit dose cup PO PRN (12:07)
[2022-01-13] MEDS: Acetaminophen IV 1 GM/100ML 100 ML IV PRN ×2 (12:50→22:43)
[2022-01-13] MEDS ORDERED: Albuterol/Ipratropium NEB.SOL (2.5/0.5 MG) 3 ML NEB.SOLN INH ONE (13:41)
[2022-01-13] MEDS ORDERED: Albuterol/Ipratropium NEB.SOL (2.5/0.5 MG) 3 ML NEB.SOLN INH PRN (13:41)
[2022-01-13] MEDS ORDERED: Enoxaparin 80 MG/0.8 ML SYR SUBCUT SCH (14:04)
[2022-01-13] MEDS ORDERED: Ondansetron 4 mg VIAL 2 MG/ML 2 ml VIAL IV ONE (14:08)
[2022-01-13] MEDS ORDERED: Furosemide 20 mg/2 ml IV VIAL IV SLOW PU ONE (14:09)
[2022-01-13] MEDS ORDERED: Piperacillin/Tazobac ADVAN 3.375 GM in NS 0.9% 100 ml BAG 100 ML IV ONE (15:00)
[2022-01-13] MEDS ORDERED: Zosyn per Pharmacy NOTE FOLLOW UP SCH (15:00)
[2022-01-13 15:05] LABS: ABS Eosinophils 0.1 10^3/ul (0-0.6); ABS Lymphocytes 0.7 10^3/ul (1.0-4.8); ABS Monocytes 0.5 10^3/ul (0-0.8); ABS Neutrophils 11.7 10^3/ul (1.5-7.7); Eosinophil % 0.5 %; Hematocrit 32 % (35-47); Hemoglobin 10.6 g/dL (12.0-16.0); Lymphocyte % 5.3 %; Mean Corpuscular HGB Conc 33 g/dL (31-36); Mean Corpuscular Hemoglobin 30 pg (27-31); Mean Corpuscular Volume 91 fL (80-97); Mean Platelet Volume 7.9 fL (7.4-10.4); Platelet Count 237 10^3/uL (150-450); Red Blood Count 3.49 10^6 /uL (3.70-4.87); Red Cell Distribution Width 14 % (10-15)
[2022-01-13 15:32] LABS: Albumin 3.5 g/dL (3.2-5.2); Albumin/Globulin Ratio 1.6 (1-3); Calcium 9.5 mg/dL (8.6-10.3); Direct Bilirubin 0.1 mg/dL (0.03-0.18); Globulin 2.2 g/dL (2-4); Indirect Bilirubin 0.4 mg/dL (0.3-1.0); Magnesium 2.2 mg/dL (1.9-2.7); Phosphorus 2.3 mg/dL (2.5-5.0); Total Bilirubin 0.5 mg/dL (0.2-1.0); Total Protein 5.7 g/dL (6.4-8.9)
[2022-01-13] MEDS: NS 0.9% 1000 ml BAG 1,000 ML IV SCH (15:33)
[2022-01-13] MEDS: Pantoprazole VIAL 40 MG VIAL IV SCH (15:38)
[2022-01-13] MEDS: ZOSYN 3.375 GM Q8H per EXTENDED INFUSION IV SCH (19:18)
[2022-01-13] MEDS: Enoxaparin 30 MG/0.3 ML SYR SUBCUT SCH (21:12)
[2022-01-14] MEDS: ZOSYN 3.375 GM Q8H per EXTENDED INFUSION IV SCH ×3 (03:26→19:47)
[2022-01-14 05:03] LABS: Hematocrit 28 % (35-47); Hemoglobin 9.4 g/dL (12.0-16.0); Mean Corpuscular HGB Conc 33 g/dL (31-36); Mean Corpuscular Hemoglobin 31 pg (27-31); Mean Corpuscular Volume 92 fL (80-97); Platelet Count 206 10^3/uL (150-450); Red Blood Count 3.07 10^6 /uL (3.70-4.87); Red Cell Distribution Width 14 % (10-15); White Blood Count 10.2 10^3/uL (3.5-10.8)
[2022-01-14 05:35] LABS: Potassium 3.9 mmol/L (3.5-5.0)
[2022-01-14 05:50] LABS: Calcium 8.5 mg/dL (8.6-10.3)
[2022-01-14 06:01] LABS: Magnesium 1.8 mg/dL (1.9-2.7)
[2022-01-14] MEDS ORDERED: Magnesium Sulfate IV 1GM/100ML 1 GM/100 ML BAG IV ONE (07:31)
[2022-01-14] MEDS: NS 0.9% 1000 ml BAG 1,000 ML IV SCH (09:15)
[2022-01-14] MEDS: Pantoprazole VIAL 40 MG VIAL IV SCH (09:16)
[2022-01-14] MEDS: Acetaminophen IV 1 GM/100ML 100 ML IV PRN (09:16)
[2022-01-14] MEDS ORDERED: Furosemide 20 mg/2 ml IV VIAL IV ONE (14:00)
[2022-01-14] MEDS: Enoxaparin 30 MG/0.3 ML SYR SUBCUT SCH (19:49)
[2022-01-15] MEDS: Acetaminophen IV 1 GM/100ML 100 ML IV PRN (01:07)
[2022-01-15] MEDS: ZOSYN 3.375 GM Q8H per EXTENDED INFUSION IV SCH ×3 (03:59→19:32)
[2022-01-15] MEDS: NS 0.9% 1000 ml BAG 1,000 ML IV SCH (03:59)
[2022-01-15 06:20] LABS: Hematocrit 29 % (35-47); Hemoglobin 9.7 g/dL (12.0-16.0); Mean Corpuscular HGB Conc 33 g/dL (31-36); Mean Corpuscular Hemoglobin 30 pg (27-31); Mean Corpuscular Volume 91 fL (80-97); Platelet Count 258 10^3/uL (150-450); Red Cell Distribution Width 14 % (10-15); White Blood Count 8.8 10^3/uL (3.5-10.8)
[2022-01-15 06:35] LABS: Calcium 8.6 mg/dL (8.6-10.3); Magnesium 1.9 mg/dL (1.9-2.7); Potassium 3.6 mmol/L (3.5-5.0); eGFR CKD-EPI 33.3 (>60)
[2022-01-15] MEDS ORDERED: Magnesium Sulfate IV 1GM/100ML 1 GM/100 ML BAG IV ONE (07:26)
[2022-01-15] MEDS: KCL 20 MEQ/100 ML IVPREMIX 20 MEQ/100 ML BAG IV SCH ×2 (07:35→10:40)
[2022-01-15] MEDS: Pantoprazole VIAL 40 MG VIAL IV SCH (08:44)
[2022-01-15] MEDS ORDERED: Furosemide 20 mg/2 ml IV VIAL IV SLOW PU ONE (15:06)
[2022-01-15] MEDS: Simethicone SUSP ORALSYR 66.66 MG/ML PO PRN (19:32)
[2022-01-15] MEDS: Ondansetron 4 mg VIAL 2 MG/ML 2 ml VIAL IV PRN (19:32)
[2022-01-15] MEDS: Enoxaparin 30 MG/0.3 ML SYR SUBCUT SCH (19:32)
[2022-01-15] MEDS ORDERED: Calcium Carb (TUMS) 500 mg CHEW TAB PO ONE (22:48)
[2022-01-16] MEDS: ZOSYN 3.375 GM Q8H per EXTENDED INFUSION IV SCH ×3 (02:51→20:08)
[2022-01-16] MEDS: Ondansetron 4 mg VIAL 2 MG/ML 2 ml VIAL IV PRN ×2 (02:57→07:58)
[2022-01-16 06:20] LABS: Hematocrit 30 % (35-47); Hemoglobin 10.2 g/dL (12.0-16.0); Mean Corpuscular HGB Conc 34 g/dL (31-36); Mean Corpuscular Hemoglobin 31 pg (27-31); Mean Corpuscular Volume 91 fL (80-97); Mean Platelet Volume 7.7 fL (7.4-10.4); Platelet Count 297 10^3/uL (150-450); Red Blood Count 3.34 10^6 /uL (3.70-4.87); Red Cell Distribution Width 14 % (10-15); White Blood Count 8.3 10^3/uL (3.5-10.8)
[2022-01-16 06:37] LABS: Calcium 8.7 mg/dL (8.6-10.3); Potassium 3.5 mmol/L (3.5-5.0); eGFR CKD-EPI 37.5 (>60)
[2022-01-16] MEDS: Pantoprazole VIAL 40 MG VIAL IV SCH (07:58)
[2022-01-16] MEDS: KCL 20 MEQ/100 ML IVPREMIX 20 MEQ/100 ML BAG IV SCH ×2 (10:43→14:03)
[2022-01-16] MEDS: Furosemide 20 mg/2 ml IV VIAL IV SLOW PU SCH (10:43)
[2022-01-16] MEDS ORDERED: Metoclopramide 5 MG/ML VIAL (10 mg) IV SLOW PU PRN (11:07)
[2022-01-16] MEDS: Enoxaparin 30 MG/0.3 ML SYR SUBCUT SCH (21:23)
[2022-01-17] MEDS: ZOSYN 3.375 GM Q8H per EXTENDED INFUSION IV SCH ×3 (03:59→19:36)
[2022-01-17 05:52] LABS: Hematocrit 29 % (35-47); Hemoglobin 9.7 g/dL (12.0-16.0); Mean Corpuscular HGB Conc 34 g/dL (31-36); Mean Corpuscular Hemoglobin 31 pg (27-31); Mean Corpuscular Volume 90 fL (80-97); Mean Platelet Volume 7.4 fL (7.4-10.4); Platelet Count 294 10^3/uL (150-450); Red Blood Count 3.17 10^6 /uL (3.70-4.87); Red Cell Distribution Width 14 % (10-15); White Blood Count 8.5 10^3/uL (3.5-10.8)
[2022-01-17 06:23] LABS: Calcium 8.7 mg/dL (8.6-10.3); Magnesium 1.7 mg/dL (1.9-2.7); Potassium 3.6 mmol/L (3.5-5.0); eGFR CKD-EPI 39.9 (>60)
[2022-01-17] MEDS ORDERED: Magnesium Sulfate IV 3 GM in NS 0.9% 100 ml BAG 100 ML IVPB ONE (06:50)
[2022-01-17] MEDS ORDERED: Magnesium Sulfate 2 GM IV (Premix) IVPB ONE (09:00)
[2022-01-17] MEDS: Enoxaparin 40 MG/0.4 ML SYR SUBCUT SCH (09:22)
[2022-01-17] MEDS: Furosemide 20 mg/2 ml IV VIAL IV SLOW PU SCH (09:23)
[2022-01-17] MEDS: Pantoprazole VIAL 40 MG VIAL IV SCH (09:23)
[2022-01-17] MEDS ORDERED: Magnesium Sulfate 1 GM IV 1 GM/100 ML BAG IV ONE (10:00)
[2022-01-18] MEDS: ZOSYN 3.375 GM Q8H per EXTENDED INFUSION IV SCH ×2 (03:32→12:20)
[2022-01-18 06:01] LABS: Hematocrit 28 % (35-47); Hemoglobin 9.4 g/dL (12.0-16.0); Mean Corpuscular HGB Conc 34 g/dL (31-36); Mean Corpuscular Hemoglobin 30 pg (27-31); Mean Corpuscular Volume 90 fL (80-97); Mean Platelet Volume 7.5 fL (7.4-10.4); Platelet Count 294 10^3/uL (150-450); Red Blood Count 3.13 10^6 /uL (3.70-4.87); Red Cell Distribution Width 14 % (10-15)
[2022-01-18 06:26] LABS: Calcium 8.6 mg/dL (8.6-10.3); Magnesium 2.1 mg/dL (1.9-2.7); Potassium 3.3 mmol/L (3.5-5.0); eGFR CKD-EPI 41.5 (>60)
[2022-01-18] MEDS: Pantoprazole VIAL 40 MG VIAL IV SCH (08:37)
[2022-01-18] MEDS: KCL 20 MEQ/100 ML IVPREMIX 20 MEQ/100 ML BAG IV SCH ×2 (08:37→16:26)
[2022-01-18] MEDS: Furosemide 20 mg/2 ml IV VIAL IV SLOW PU SCH (08:37)
[2022-01-18] MEDS: Enoxaparin 40 MG/0.4 ML SYR SUBCUT SCH (08:41)
[2022-01-18] MEDS ORDERED: Potassium Chlor 20 meq TAB.ER PO ONE (14:11)
[2022-01-18 15:55] VITALS: BP 152/72
[2022-01-18] MEDS: Simethicone SUSP ORALSYR 66.66 MG/ML PO PRN (16:10)
== END 2022-01-18 17:30 | disposition home or self-care (01) | DRG 329 ==
LOC: ED 11:17 → SUATTDRO 18:18 → EDHOLD 18:18 → MED 20:35 → SSU 01-11 16:28
PROVIDERS: ADMIT Student in an Organized Health Care Education/Training Program; ATTEND Student in an Organized Health Care Education/Training Program

== ENCOUNTER 2022-10-14 13:23 | Inpatient (IN) ==
[2022-10-14] MEDS ORDERED: Labetalol IV 5 MG/ML 20 ml VIAL IV PUSH ONE (13:44)
[2022-10-14 14:18] LABS: ABS Basophils 0.1 10^3/ul (0-0.2); ABS Eosinophils 0.1 10^3/ul (0-0.6); ABS Monocytes 0.6 10^3/ul (0-0.8); Eosinophil % 2.2 %; Hematocrit 38 % (35-47); Hemoglobin 12.5 g/dL (12.0-16.0); Lymphocyte % 17.5 %; Mean Corpuscular HGB Conc 33 g/dL (31-36); Mean Corpuscular Hemoglobin 30 pg (27-31); Mean Corpuscular Volume 90 fL (80-97); Mean Platelet Volume 7.2 fL (7.4-10.4); Platelet Count 183 10^3/uL (150-450); Red Cell Distribution Width 14 % (10-15); White Blood Count 5.7 10^3/uL (3.5-10.8)
[2022-10-14 14:38] LABS: Albumin/Globulin Ratio 1.7 (1-3); Calcium 10.1 mg/dL (8.6-10.3); Globulin 2.4 g/dL (2-4); HDL Cholesterol 42.6 mg/dL; Potassium 4.1 mmol/L (3.5-5.0); Total Bilirubin 0.4 mg/dL (0.2-1.0); Total Protein 6.4 g/dL (6.4-8.9); eGFR CKD-EPI 26.6 (>60)
[2022-10-14 14:49] LABS: Activated Partial Thrombo Time 28.9 seconds (26.0-38.0); INR 1.07 (0.89-1.11)
[2022-10-14 15:28] LABS: Urine Appearance Clear; Urine Bilirubin Negative (Negative); Urine Color Yellow; Urine Glucose Negative (Negative); Urine Ketones Negative (Negative); Urine Nitrite Negative (Negative); Urine Protein Negative (Negative); Urine Urobilinogen 0.2 (Negative) (Negative); Urine pH 5.5 (5.0-9.0)
[2022-10-14 15:44] LABS: Urine Bacteria Absent (Absent); Urine Red Blood Cell 3+(>10/hpf) (Absent); Urine Squamous Epithelial Cell Present (Absent); Urine White Blood Cell 2+(11-20/hpf) (Absent)
[2022-10-14] MEDS ORDERED: Labetalol IV 5 MG/ML 20 ml VIAL IV PUSH PRN (17:03)
[2022-10-14] MEDS ORDERED: Ondansetron 4 mg VIAL 2 MG/ML 2 ml VIAL IV PRN (17:03)
[2022-10-14] MEDS ORDERED: Albuterol HFA INHALER 8 gm MDI INH PRN (17:17)
[2022-10-15 06:14] LABS: ABS Eosinophils 0.1 10^3/ul (0-0.6); ABS Lymphocytes 0.8 10^3/ul (1.0-4.8); ABS Monocytes 0.5 10^3/ul (0-0.8); ABS Neutrophils 4.1 10^3/ul (1.5-7.7); Eosinophil % 2.6 %; Hematocrit 38 % (35-47); Hemoglobin 12.6 g/dL (12.0-16.0); Lymphocyte % 14.7 %; Mean Corpuscular HGB Conc 34 g/dL (31-36); Mean Corpuscular Hemoglobin 30 pg (27-31); Mean Corpuscular Volume 90 fL (80-97); Mean Platelet Volume 7.5 fL (7.4-10.4); Nucleated Red Blood Cells % 0.1; Platelet Count 190 10^3/uL (150-450); Red Blood Count 4.18 10^6 /uL (3.70-4.87); Red Cell Distribution Width 14 % (10-15); White Blood Count 5.6 10^3/uL (3.5-10.8)
[2022-10-15 06:57] LABS: Blood Urea Nitrogen 27 mg/dL (6-24); CO2 Carbon Dioxide 28 mmol/L (22-32); Calcium 9.9 mg/dL (8.6-10.3); Chloride 102 mmol/L (101-111); Glucose 106 mg/dL (70-100); Sodium 139 mmol/L (135-145); eGFR CKD-EPI 30.6 (>60)
[2022-10-15 07:04] LABS: Anion Gap 9 mmol/L (2-11)
[2022-10-15 09:27] LABS: Potassium, Whole Blood 3.9 mmol/L (3.4-4.5)
[2022-10-15] MEDS ORDERED: NS 0.9% 250 ml 250 ML IV ONE ×2 (15:43→16:23)
[2022-10-15] MEDS ORDERED: NS 0.9% 1000 ml BAG 1,000 ML IV SCH (15:45)
[2022-10-16] MEDS ORDERED: Gadoteridol (CONTRAST) 279.3 MG/ML 10 ML IV ONE (15:36)
[2022-10-16 16:28] VITALS: BP 150/69
== END 2022-10-16 18:25 | disposition home or self-care (01) | DRG 69 ==
LOC: ED 13:23 → EDHOLD 17:03 → SUATTDRO 17:03 → EDHOLD 10-15 10:40 → MEDTELE 10-15 11:23
PROVIDERS: ADMIT Internal Medicine; ATTEND Hospitalist

== ENCOUNTER 2022-12-16 23:37 | Inpatient (IN) ==
[2022-12-16] MEDS ORDERED: Iodixanol (CONTRAST) 320 MG/ML 100 ML SDV IV ONE (23:56)
[2022-12-17 00:16] LABS: ABS Basophils 0.1 10^3/ul (0-0.2); ABS Eosinophils 0.2 10^3/ul (0-0.6); ABS Lymphocytes 1.2 10^3/ul (1.0-4.8); ABS Monocytes 0.6 10^3/ul (0-0.8); ABS Neutrophils 3.6 10^3/ul (1.5-7.7); Eosinophil % 3.9 %; Hematocrit 34 % (35-47); Lymphocyte % 20.3 %; Mean Corpuscular HGB Conc 32 g/dL (31-36); Mean Corpuscular Hemoglobin 29 pg (27-31); Mean Corpuscular Volume 91 fL (80-97); Mean Platelet Volume 7.5 fL (7.4-10.4); Platelet Count 207 10^3/uL (150-450); Red Blood Count 3.74 10^6 /uL (3.70-4.87); Red Cell Distribution Width 14 % (10-15); White Blood Count 5.7 10^3/uL (3.5-10.8)
[2022-12-17 00:31] LABS: Activated Partial Thrombo Time 30.3 seconds (26.0-38.0); INR 1.28 (0.88-1.18)
[2022-12-17 00:50] LABS: Albumin 3.6 g/dL (3.2-5.2); Albumin/Globulin Ratio 1.5 (1-3); Calcium 9.7 mg/dL (8.6-10.3); Creatinine, Serum 1.7 mg/dL (0.51-0.95); Globulin 2.4 g/dL (2-4); HDL Cholesterol 64.8 mg/dL; Potassium 4.1 mmol/L (3.5-5.0); Total Bilirubin 0.4 mg/dL (0.2-1.0); eGFR CKD-EPI 28.5 (>60)
[2022-12-17] MEDS ORDERED: Albuterol HFA INHALER 8 gm MDI INH PRN (01:51)
[2022-12-17 04:25] LABS: Urine Appearance Clear; Urine Bilirubin Negative (Negative); Urine Blood 3+ (Negative); Urine Color Straw; Urine Glucose Negative (Negative); Urine Ketones Negative (Negative); Urine Nitrite Negative (Negative); Urine Protein Negative (Negative); Urine Specific Gravity 1.014 (1.002-1.030); Urine Urobilinogen Negative (Negative)
[2022-12-17 04:28] LABS: Urine Bacteria Absent (Absent); Urine Red Blood Cell 3+(>10/hpf) (Absent); Urine White Blood Cell Absent (Absent)
[2022-12-17] MEDS: CMCS: Solifenacin 5 mg TAB (NF) PO SCH (09:49)
[2022-12-17] MEDS ORDERED: Gadoteridol (CONTRAST) 279.3 MG/ML 10 ML IV ONE (16:32)
[2022-12-17] MEDS: Aspirin EC 81 mg TAB.EC (enteric coated) PO SCH (18:12)
[2022-12-18 09:13] LABS: ABS Eosinophils 0.3 10^3/ul (0-0.6); ABS Lymphocytes 0.8 10^3/ul (1.0-4.8); ABS Monocytes 0.4 10^3/ul (0-0.8); ABS Neutrophils 4.3 10^3/ul (1.5-7.7); Eosinophil % 4.3 %; Hematocrit 37 % (35-47); Hemoglobin 11.8 g/dL (12.0-16.0); Lymphocyte % 14.3 %; Mean Corpuscular HGB Conc 32 g/dL (31-36); Mean Corpuscular Hemoglobin 30 pg (27-31); Mean Corpuscular Volume 92 fL (80-97); Mean Platelet Volume 7.6 fL (7.4-10.4); Platelet Count 203 10^3/uL (150-450); Red Blood Count 3.96 10^6 /uL (3.70-4.87); Red Cell Distribution Width 14 % (10-15); White Blood Count 5.9 10^3/uL (3.5-10.8)
[2022-12-18 09:40] LABS: Calcium 9.6 mg/dL (8.6-10.3); Potassium 4.3 mmol/L (3.5-5.0)
[2022-12-18 09:45] LABS: Creatinine, Serum 1.63 mg/dL (0.51-0.95)
[2022-12-18] MEDS: Aspirin EC 81 mg TAB.EC (enteric coated) PO SCH (12:17)
[2022-12-18] MEDS: CMCS: Solifenacin 5 mg TAB (NF) PO SCH (12:17)
[2022-12-19] MEDS: Aspirin EC 81 mg TAB.EC (enteric coated) PO SCH (08:44)
[2022-12-19] MEDS: CMCS: Solifenacin 5 mg TAB (NF) PO SCH (08:44)
[2022-12-19] MEDS ORDERED: Magnesium Hydroxide LIQ 30 ML UDC PO SCH (12:00)
[2022-12-19] MEDS ORDERED: Polyethylene Glycol 3350 17 GM PACKET PO SCH (12:00)
[2022-12-19 15:15] VITALS: BP 140/67
[2022-12-19] MEDS ORDERED: Senna TAB 8.6 mg TAB PO SCH (21:00)
== END 2022-12-19 16:05 | DRG 65 ==
LOC: ED 23:37 → EDHOLD 23:37 → SUATTDRO 12-17 01:00 → MEDTELE 12-17 16:30 → SUATTDRO 12-18 16:53
PROVIDERS: ADMIT Student in an Organized Health Care Education/Training Program; ATTEND Internal Medicine

== ENCOUNTER 2022-12-19 14:22 | Inpatient (IN) ==
[2022-12-19] MEDS ORDERED: Magnesium Hydroxide LIQ 30 ML UDC PO PRN (17:05)
[2022-12-19] MEDS ORDERED: Senna TAB 8.6 mg TAB PO PRN (17:05)
[2022-12-19] MEDS ORDERED: Albuterol HFA INHALER 8 gm MDI INH PRN (17:12)
[2022-12-20 07:51] LABS: ABS Eosinophils 0.2 10^3/ul (0-0.6); ABS Lymphocytes 0.9 10^3/ul (1.0-4.8); ABS Monocytes 0.5 10^3/ul (0-0.8); ABS Neutrophils 3.7 10^3/ul (1.5-7.7); Eosinophil % 4.2 %; Hematocrit 36 % (35-47); Hemoglobin 11.7 g/dL (12.0-16.0); Lymphocyte % 16.2 %; Mean Corpuscular HGB Conc 33 g/dL (31-36); Mean Corpuscular Hemoglobin 30 pg (27-31); Mean Corpuscular Volume 92 fL (80-97); Mean Platelet Volume 7.7 fL (7.4-10.4); Platelet Count 221 10^3/uL (150-450); Red Blood Count 3.89 10^6 /uL (3.70-4.87); Red Cell Distribution Width 14 % (10-15); White Blood Count 5.4 10^3/uL (3.5-10.8)
[2022-12-20 08:23] LABS: Albumin 3.9 g/dL (3.2-5.2); Albumin/Globulin Ratio 1.6 (1-3); Calcium 9.9 mg/dL (8.6-10.3); Creatinine, Serum 1.74 mg/dL (0.51-0.95); Globulin 2.4 g/dL (2-4); Potassium 4.1 mmol/L (3.5-5.0); Total Bilirubin 0.5 mg/dL (0.2-1.0); Total Protein 6.3 g/dL (6.4-8.9); eGFR CKD-EPI 27.7 (>60)
[2022-12-20] MEDS: Aspirin EC 81 mg TAB.EC (enteric coated) PO SCH (08:40)
[2022-12-20] MEDS: Polyethylene Glycol 3350 17 GM PACKET PO SCH (08:40)
[2022-12-20] MEDS ORDERED: guaiFENesin 100 mg/5 ml LIQ unit dose cup PO PRN (19:07)
[2022-12-21] MEDS: Polyethylene Glycol 3350 17 GM PACKET PO SCH (07:23)
[2022-12-21] MEDS: Aspirin EC 81 mg TAB.EC (enteric coated) PO SCH (07:23)
[2022-12-22 05:48] VITALS: BP 162/72
[2022-12-22] MEDS: Aspirin EC 81 mg TAB.EC (enteric coated) PO SCH (08:33)
[2022-12-22] MEDS: Polyethylene Glycol 3350 17 GM PACKET PO SCH (08:33)
== END 2022-12-22 16:04 | disposition home or self-care (01) | DRG 57 ==
LOC: UNDODISIN 16:05 → PMRU 16:22
PROVIDERS: ADMIT Physical Medicine & Rehabilitation; ATTEND Physical Medicine & Rehabilitation